=== PATIENT | female | born 1985 ===

== ENCOUNTER 2017-04-23 15:48 | Emergency (ER) | payer OTHER ==
[2017-04-23 15:58] VITALS: TEMP 97.5
--- NOTE | 2017-04-23 17:24 | ED PDOC ---
HPI: Psych/Substance Abuse Time Seen by Provider: 04/23/17 16:09 Chief Complaint (Nursing): Psychiatric Evaluation History Per: Patient Additional Complaint(s): Pt. states for the past several weeks she's felt overwhelmed, anxious, and very stressed out. States she is the sole provider of her children and that she is currently 5 months . States last week she was seen in [facility] ED for vaginal bleeding and dc'd with a negative work up. She then f/u with her OBGYN, Dr. Zaldivar, this week and had work up to r/o placenta previa but was normal. Reports bleeding has resolved along with pain. She was advised by her coworker to go to ED to be seen by crisis. Denies SI/HI, hallucinations. Offers no physical complaints at this time. Past Medical History Reviewed: Historical Data, Nursing Documentation, Vital Signs Vital Signs: Last Vital Signs Temp 97.5 F L 04/23/17 15:55 Pulse 72 04/23/17 15:55 Resp 18 04/23/17 15:55 BP 105/54 L 04/23/17 15:55 Pulse Ox 99 04/23/17 15:55 - Family History Family History: States: No Known Family Hx - Immunization History Hx Tetanus Toxoid Vaccination: (UTD) - Home Medications Home Medications: Ambulatory Orders Medication Instructions Recorded Cephalexin [Keflex] 500 mg PO QID #28 cap 01/24/15 Prednisone 50 mg PO DAILY #5 tab 01/24/15 DiphenhydrAMINE [Benadryl] 50 mg PO Q6H #20 cap 08/02/15 Famotidine [Pepcid] 20 mg PO BID #20 tab 08/02/15 Prednisone 50 mg PO DAILY #4 tab 08/02/15 - Allergies Allergies/Adverse Reactions: Allergies Allergy/AdvReac Type Severity Reaction Status Date / Time No Known Allergies Allergy Verified 04/23/17 17:24 Review of Systems ROS Statement: Except As Marked, All Systems Reviewed And Found Negative Psych: Positive for: Anxiety, Depression Physical Exam - Reviewed Nursing Documentation Reviewed: Yes Vital Signs Reviewed: Yes - Physical Exam Appears: Positive for: Well, Non-toxic, No Acute Distress Head Exam: Positive for: ATRAUMATIC, NORMAL INSPECTION, NORMOCEPHALIC Skin: Positive for: Normal Color, Warm, DRY Eye Exam: Positive for: EOMI, Normal appearance, PERRL ENT: Positive for: Normal ENT Inspection Neck: Positive for: Normal, Painless ROM Cardiovascular/Chest: Positive for: Regular Rate, Rhythm Respiratory: Positive for: CNT, Normal Breath Sounds Gastrointestinal/Abdominal: Positive for: Normal Exam, Bowel Sounds, Soft, Other (gravid). Negative for: Tenderness Back: Positive for: Normal Inspection. Negative for: L CVA Tenderness, R CVA Tenderness Extremity: Positive for: Normal ROM Neurologic/Psych: Positive for: Alert, Oriented, Mood/Affect (crying but easily consolable) - ECG O2 Sat by Pulse Oximetry: 99 - Progress ED Course And Treament: Crisis evaluation ordered. Pt. evaluated by crisis and cleared pt. for discharge with outpt. f/u arranged. Disposition - Clinical Impression Clinical Impression: Depression - Patient ED Disposition Is Patient to be Admitted: No - Disposition Disposition: Routine/Home Disposition Time: 18:34 Condition: STABLE Instructions: Depression (ED) Forms: [address] ([place])
[2017-04-23 18:51] VITALS: BP 110/72; PULSE 76; RESP 16; O2SAT 98
== END 2017-04-23 18:51 | disposition home or self-care (01) ==
LOC: H.ER 15:48
DX: F32.9 Major depressive disorder, single episode, unspecified (principal); Z00.8 Encounter for other general examination

== ENCOUNTER 2017-08-17 06:56 | Inpatient (IN) | payer OTHER ==
[2017-08-17 07:30] VITALS: BMI 30.7
[2017-08-17] MEDS: Lactated Ringer's 1,000 ML IV SCH ×2 (07:50→08:15)
--- NOTE | 2017-08-17 07:56 | OBHP ---
Datetime: 08/17/2017 07:47 IP Adm Impression: Term, intrauterine ; Active labor IP Admit Plan: Admit to unit; Initiate labor protocol Admit Comment, IP Provider: 31yo with IUP at 40wks presents here today c/o pelvic contractions. She reports good movements but denies VB or LOF. Pt had PNC with [facility], [place], operated by [facility] and had a h/o anxiety disorder Previous NSVDs X2, H/O Herpes on acyclovir prophylaxis. No herpetic lesions for the past 5 years. [place]- Q 2-3mins FHR- Category 1, Cx-5/80/-2,. Vtx presentation Assessment: IUP at 40wks in Active Labor. Plan: Admit to LND Monitor Closely the progress of labor. Pelvic Type - PN: Adequate Extremities - PN: Normal Abdomen - PN: Normal Back - PN: Normal Breast - PN: Normal Lungs - PN: Normal Heart - PN: Normal Thyroid - PN: Normal Neurologic - PN: Normal HEENT - PN: Normal General - PN: Normal Presentation-Admit: Vertex FHR - Baseline A Provider: 150 Membranes, Provider: Intact Contraction Comments Provider: Q 2-3 Comments, ACOG Physical Exam: Abd: Soft, NT, BS- present Gestation - Est Wks by US: 40.0 EGA AdmitDate IP: 40.0 Vital Signs Provider: Reviewed IP Chief Complaint: Uterine contractions; Maternal discomfort NICHD Variability Prov Fetus A: Moderate 6-25bpm NICHD Accel Fetus A IP Provider: [id number] FHR Category Provider Fetus A: Category I Dilatation, Provider: 5 Effacement, Provider: 80 Station, Provider: -2 Genitourinary Exam: Normal DTRs - PN: Normal
--- NOTE | 2017-08-17 07:59 | OBADHP ---
Datetime: 08/17/2017 07:47 Admit Comment, IP Provider: 31yo with IUP at 40wks presents here today c/o pelvic contractions. She reports good movements but denies VB or LOF. Pt had PNC with [facility] and had a h/o anxiety disorder Previous NSVDs X2, H/O Herpes on acyclovir prophylaxis. No herpetic lesions for the past 5 years. [place]- Q 2-3mins FHR- Category 1, Cx-5/80/-2,. Vtx presentation Assessment: IUP at 40wks in Active Labor. Plan: Admit to LND Monitor Closely the progress of labor. Pelvic Type - PN: Adequate Extremities - PN: Normal Abdomen - PN: Normal Back - PN: Normal Breast - PN: Normal Lungs - PN: Normal Heart - PN: Normal Thyroid - PN: Normal Neurologic - PN: Normal HEENT - PN: Normal General - PN: Normal Presentation-Admit: Vertex FHR - Baseline A Provider: 150 Membranes, Provider: Intact Contraction Comments Provider: Q 2-3 Comments, ACOG Physical Exam: Abd: Soft, NT, BS- present Gestation - Est Wks by US: 40.0 Vital Signs Provider: Reviewed IP Chief Complaint: Uterine contractions; Maternal discomfort NICHD Variability Prov Fetus A: Moderate 6-25bpm NICHD Accel Fetus A IP Provider: [id number] FHR Category Provider Fetus A: Category I Dilatation, Provider: 5 Effacement, Provider: 80 Station, Provider: -2 Genitourinary Exam: Normal DTRs - PN: Normal EGA AdmitDate IP: 40.0 IP Adm Impression: Term, intrauterine ; Active labor IP Admit Plan: Admit to unit; Initiate labor protocol
[2017-08-17] MEDS ORDERED: Lactated Ringer's 1,000 ML IV SCH (08:00)
[2017-08-17 08:20] LABS: BASO % 0.5 % (0.0-2.0); EOS % 0.4 % (0.0-4.0); LYMPH % 12.1 % (20.0-40.0); MEAN CELL VOLUME 86.1 fl (81.0-99.0); MEAN CORPUSCULAR HEMOGLOBIN 28.8 pg (27.0-31.0); MEAN CORPUSCULAR HGB CONC 33.5 g/dL (33.0-37.0); MEAN PLATELET VOLUME 9.4 fl (7.2-11.7); MONO # 0.6 K/uL (0.0-0.8); MONO % 7.5 % (0.0-10.0); NEUT # 6.8 K/uL (1.8-7.0); NEUT % 79.5 % (50.0-75.0); NRBC % 0.2 % (0.0-0.0); RBC 3.8 Mil/uL (3.80-5.20); RED CELL DISTRIBUTION WIDTH 14.1 % (11.5-14.5); WHITE BLOOD COUNT 8.5 K/uL (4.8-10.8)
[2017-08-17 08:24] VITALS: TEMP 98.5
[2017-08-17] MEDS ORDERED: Phenylephrine 10 mg/ml Inj ONE (08:31)
[2017-08-17] MEDS ORDERED: ePHEDrine 50 mg/ml Inj ONE (08:32)
[2017-08-17] MEDS ORDERED: Fentanyl/Bupivacaine HCl 250 ML EPI ONE (08:33)
[2017-08-17] MEDS ORDERED: Bupivacaine HCl 0.25% PF (10 ml) Inj ONE (08:33)
[2017-08-17] MEDS ORDERED: Lidocaine 1% Inj (20ml) ONE ×2 (09:08→16:55)
[2017-08-17] MEDS ORDERED: DiphenhydrAMINE 50 mg/ml Inj ONE (09:44)
--- NOTE | 2017-08-17 09:44 | OBDS ---
DELIVERY PERSONNEL Nurse Miniature Model Maker Certified: mary Delivery Doctor: DR Cruz Scrzeenat Nurse: mary Managed Care Nurse: Wilma Romero RNC Anesthesiologist: md [employer] Supervisor: mary Resident: Amauri MATERNAL INFORMATION Delivery Anesthesia: Epidural Medications in Delivery: pitocin Estimated Blood Loss (ml): 100c Placenta Cultured: No Maternal Complications: None RN Comments: uneventfull to baby girl; 9/9; no lacerations nor episiotomy Provider Comments: of live female over intact perineum in LINDA presentation, nuchal cord x 2 easily reduced, 6lbs 12oz, 9/9, followed by shoulders and rest of infant atraumatically, infant p laced on mother's chest, mouth and nose suctioned, cord clamped and cut, cord blood placenta deliver ed spontaneously, fundus firm, xpk=[id number], no lacerations noted, pt tolerated procedure fine LABOR SUMMARY EDC: 08/17/2017 00:00 No. Babies in Womb: 1 Attempted: No Labor Anesthesia: Epidural LABOR INFORMATION Onset of Labor: 08/17/2017 04:30 Complete Dilatation: 08/17/2017 09:15 Other Ripening Agents: na Oxytocin: N/A Group B Beta Strep: Negative Antibiotics # of Doses: na Antibiotics Time of Last Dose: na Steroids Given: None Reason Steroids Not Administered: Not Applicable Other Reason Not Administered: na MEMBRANES Membranes Rupture Method: Spontaneous Rupture of Membranes: 08/17/2017 09:05 Length of Rupture (hrs): 0.40 Amniotic Fluid Color: Clear Amniotic Fluid Amount: Scant Amniotic Fluid Odor: Normal STAGES OF LABOR Stage 1 hrs: 4 Stage 1 min: 45 Stage 2 hrs: 0 Stage 2 min: 14 Stage 3 hrs: 0 Stage 3 min: 1 Total Time in Labor hrs: 5 Total Time in Labor min: 0 VAGINAL DELIVERY Episiotomy: None Laceration Extension: N/A Laceration Type: None Laceration Repair: Not Applicable Initial Vag Sponge Count: 6 Final Vag Sponge Count: 6 Initial Vag Sharps Count: 1 Final Vag Sharps Count: 1 Sponge Count Correct: Yes Sharps Count Correct: Yes Count Comment: correct count BABY A INFORMATION Delivery Date/Time: 08/17/2017 09:29 Method of Delivery: Vaginal Born in Route : No : N/A Forceps: N/A Vacuum Extraction: N/A Shoulder Dystocia : No SHOULDER DYSTOCIA BABY A Infant Delivery Date/Time: 08/17/2017 09:29 PRESENTATION/POSITION BABY A Presentation: Cephalic Cephalic Presentation: Vertex Vertex Position: Left Occipital Anterior Breech Presentation: N/A PLACENTA INFORMATION BABY A Placenta Delivery Time : 08/17/2017 09:30 Placenta Method of Delivery: Spontaneous Placenta Status: Delivered SCORES BABY A Heart Rate 1 min: >100 bpm Resp Effort 1 min: Good Cry Reflex Irritability 1 min: Cough or Sneeze or Pulls Away Muscle Tone 1 min: Active Motion Color 1 min: Body [place], Extremities Blue SCORE 1 MIN: 9 Heart Rate 5 min: >100 bpm Resp Effort 5 min: Good Cry Reflex Irritability 5 min: Cough or Sneeze or Pulls Away Muscle Tone 5 min: Active Motion Color 5 min: Body [place], Extremities Blue SCORE 5 MIN: 9 INFANT INFORMATION BABY A Gestational Age at Delivery: 40.0 Gestational Status: Term Infant Outcome : Liveborn Condition : Stable Infant Sex: Female IDENTIFICATION/MEDS BABY A ID Band Number: [id number] ID Band Location: Left Leg; Left Arm WEIGHT/LENGTH BABY A Infant Birthweight (gms): 3065 Weight (lb): 6 Infant Weight (oz): 12 CORD INFORMATION BABY A No. Cord Vessels: 3 Nuchal Cord : Around Neck x2, Loose Nuchal Cord Other: 0 True Knot: 0 Cord pH Baby Arterial: na Cord pH Baby Venous: na Cord Blood Taken: Yes Banking/Donate Info: no Infant Suction: Mouth; Nose; Pharynx
[2017-08-17] MEDS ORDERED: Benzocaine/Menthol SPRAY TOP PRN (09:45)
[2017-08-17] MEDS ORDERED: Oxycodone/Acetaminophen 5/325 mg Tab PO PRN ×2 (09:45→11:30)
[2017-08-17] MEDS ORDERED: Oxytocin 30 UNITS in Sodium Chloride 0.9% 500 ML IV ONE (10:00)
[2017-08-17] MEDS ORDERED: DiphenhydrAMINE 50 mg/ml Inj IVP ONE (12:00)
[2017-08-17] MEDS: Benzocaine/Menthol SPRAY TOP PRN (16:39)
[2017-08-18 06:36] LABS: HEMOGLOBIN 9.5 g/dL (12.0-16.0); MEAN CELL VOLUME 87.3 fl (81.0-99.0); MEAN CORPUSCULAR HEMOGLOBIN 28.6 pg (27.0-31.0); MEAN CORPUSCULAR HGB CONC 32.8 g/dL (33.0-37.0); RBC 3.34 Mil/uL (3.80-5.20); RED CELL DISTRIBUTION WIDTH 14.7 % (11.5-14.5); WHITE BLOOD COUNT 8.7 K/uL (4.8-10.8)
[2017-08-18] MEDS: Multivitamin With Minerals Tab PO SCH (08:40)
[2017-08-18] MEDS ORDERED: Multivitamin With Minerals Tab PO SCH (09:00)
--- NOTE | 2017-08-18 10:38 | OBPPN ---
Datetime: 08/18/2017 06:12 PP Pain Prov: Within normal limits PP Nausea Prov: Denies PP Flatus Prov: Yes PP BM Prov: No PP Breasts Prov: Not Done PP Heart Prov: Normal PP Lungs Prov: Normal PP Abdomen/Uterus Prov: Normal PP Lochia Prov: Normal PP Vulva/Perineum Prov: Not Done PP CVA Tenderness Prov: Not Done PP Extremities Prov: Normal PP C/S Incision Prov: Not Applicable PP Progress Prov: Normal PP Impression Prov: Normal progression PP Plan Prov: Continue present management PP Progress Note Prov: S: 31 yo s/p NVD. Pt. is seen and examined at bedside this morning. N o overnight events. Pt reports occasional abdominal pain, but well controlled with pain meds. Pt is a mbulating without any difficulties. Breast feeding baby. Tolerating PO diet. Lochia is similar to lig ht menses in volume. Voiding freely, no BM yet, no passing gas per rectum. Denies fever/chills, diarr hea, nausea/vomiting, chest pain, dyspnea, and dizziness. VS: stable Gen: NAD Cardio: s1s2, no m/r/g Resp: clear breath sounds b/l Abdomen: BS+, NT, Uterus is firm and at the level of the umbilicus. EXT: No edema, calves nontender Neuro/Psych: AAOx3, no grossly focal deficit, preserved affect and mood. A/P: 31 yo s/p NVD. Pt remains afebrile, tolerating pain with medication, doing well on PP D 1. OOB with caution. SCDs for DVT prophylaxis, pt ambulating Ibuprofen 600mg for pain. Colace 100mg PO BID for constipation Encourage . PP CBC: pending MMR before d/c. Anticipated d/c: 08/19/17 [facility]ecerra PGY 1 [facility] - pt seen on ronds this mornign...agree with note...anticipate discharge tmr dm BOOKER PP Procedures: None Vital Signs Provider PP: Reviewed; Within Normal Limits
--- NOTE | 2017-08-18 14:14 | CP.PCM.CON ---
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 pt started experiencing panic attacks while driving to work with shortness of breath and sweating and hand tremors at least twice a day each attack lasting about 5minutes pt reported that she managed to take a time off from work and since then did not experience any panic attacks reported at current time mood stable no current anxiety symptoms, no manic or depressive symptoms no psychotic symptoms Past Patient History - Past Social History Smoking Status: Former Smoker - CARDIAC Hx Cardiac Disorders: No Hx Hypertension: No - PULMONARY Hx Tuberculosis: No - NEUROLOGICAL HX Cerebrovascular Accident: No Hx Seizures: No - HEMATOLOGICAL/ONCOLOGICAL Hx Cancer: No Hx Human Immunodeficiency Virus (HIV): No - GENITOURINARY/GYNECOLOGICAL Hx Sexually Transmitted Disorders: No - PSYCHIATRIC Hx Substance Use: No - SURGICAL HISTORY Hx Surgeries: No - ANESTHESIA Hx Anesthesia: No Meds Allergies/Adverse Reactions: Allergies Allergy/AdvReac Type Severity Reaction Status Date / Time No Known Allergies Allergy Verified 04/23/17 17:24 - Medications Medications: Current Medications Acetaminophen (Tylenol 325mg Tab) 650 mg PO Q6 PRN PRN Reason: Fever >100.4 F Last Admin: 08/17/17 16:40 Dose: 650 mg Benzocaine/Menthol (Dermoplast) 1 sprays TOP PRN PRN PRN Reason: Perineal Discomfort Last Admin: 08/17/17 16:39 Dose: 1 sprays Ibuprofen (Motrin Tab) 600 mg PO Q6 PRN PRN Reason: Pain, Mild (1-3) Last Admin: 08/18/17 08:44 Dose: 600 mg Multivitamins/Minerals (Therapeutic-M Tab) 1 tab PO DAILY SIGIFREDO Last Admin: 08/18/17 08:40 Dose: 1 tab Oxycodone/Acetaminophen (Percocet 5/325 Mg Tab) 1 tab PO Q4 PRN PRN Reason: Pain, moderate (4-7) Stop: 08/20/17 09:46 Physical Exam - Psychiatric Exam Additional comments: pt calm cooperative, good eye contact speech normal seen holding the baby and bonding well with her, thought form coherent denied any current suicidal or homicidal ideations denied perceptual disturbances, alert awake ox3 good insight and judgment Results - Vital Signs Recent Vital Signs: Last Vital Signs Temp 98.5 F 08/17/17 08:22 Pulse 92 H 08/17/17 08:22 Resp 17 08/17/17 08:22 BP 114/63 08/17/17 08:22 Pulse Ox 100 08/17/17 08:22 - Labs Result Diagrams: 08/18/17 06:15 Labs: Laboratory Results - last 24 hr 08/18/17 06:15 WBC 8.7 RBC 3.34 L Hgb 9.5 L Hct 29.1 L MCV 87.3 MCH 28.6 MCHC 32.8 L RDW 14.7 H Plt Count 164 Assessment & Plan - Assessment and Plan (Free Text) Assessment: panic disorder without agorophobia in remisson Plan: pt at current mental status not danger to self or others cleared to be discharged home after medical clearence
[2017-08-19] MEDS ORDERED: Measles, Mumps, and Rubella 0.5 ML VIAL SC ONE ×2 (09:00→11:00)
[2017-08-19] MEDS: Multivitamin With Minerals Tab PO SCH (09:19)
[2017-08-19] MEDS: Benzocaine/Menthol SPRAY TOP PRN (09:20)
--- NOTE | 2017-08-19 10:41 | OBPPN ---
Datetime: 08/19/2017 06:19 PP Pain Prov: Within normal limits PP Nausea Prov: Denies PP Flatus Prov: Yes PP BM Prov: Yes PP Heart Prov: Normal PP Lungs Prov: Normal PP Abdomen/Uterus Prov: Normal PP Lochia Prov: Normal PP Vulva/Perineum Prov: Not Done PP CVA Tenderness Prov: Not Done PP Extremities Prov: Normal PP C/S Incision Prov: Not Applicable PP Progress Prov: Normal PP Impression Prov: Normal progression PP Plan Prov: Discharge PP Progress Note Prov: S: 31 yo s/p NVD. Pt. is seen and examined at bedside this morning. N o overnight events. Pt reports occasional abdominal pain, but well controlled with pain meds. Pt is a mbulating without any difficulties. Breast feeding baby. Tolerating PO diet. Lochia is similar to lig ht menses in volume. Voiding freely, + BM. Denies fever/chills, diarrhea, nausea/vomiting, chest pain , dyspnea, and dizziness. VS: stable Gen: NAD Cardio: s1s2, no m/r/g Resp: clear breath sounds b/l Abdomen: BS+, NT, Uterus is firm and at the level of the umbilicus. EXT: No edema, calves nontender Neuro/Psych: AAOx3, no grossly focal deficit, preserved affect and mood. A/P: 31 yo s/p NVD. Pt remains afebrile, tolerating pain with medication, doing well on PP D 2. OOB with caution. SCDs for DVT prophylaxis, pt ambulating Ibuprofen 600mg for pain. Colace 100mg PO BID for constipation. Iron 325mg PO for anemia. Encourage . PP CBC: 9.5/29.1 MMR before d/c. Discharge today. YBecerra PGY 1 The patient was seen with the resident I agree with note IP PP Procedures: [place] Vital Signs Provider PP: Reviewed; Within Normal Limits
[2017-08-19 15:48] VITALS: BP 106/63; PULSE 79; RESP 18; O2SAT 99
== END 2017-08-19 11:47 | disposition home or self-care (01) | DRG 373 ==
LOC: H.EROB2 06:56 → H.L&D 07:48 → H.OB/GYN 11:30
PROVIDERS: ADMIT Obstetrics & Gynecology; ATTEND Obstetrics & Gynecology
PROC: 10E0XZZ Delivery of Products of Conception, External Approach (ICD-10-PCS; principal; 2017-08-17)
PROC: 4A1HXCZ Monitoring of Products of Conception, Cardiac Rate, External Approach (ICD-10-PCS; 2017-08-17)
DX: O48.0 Post-term pregnancy (principal); O99.344 Other mental disorders complicating childbirth; D64.9 Anemia, unspecified; O99.02 Anemia complicating childbirth; Z37.0 Single live birth; F41.0 Panic disorder [episodic paroxysmal anxiety]; O69.81X0 Labor and delivery complicated by cord around neck, without compression, not applicable or unspecified; Z3A.40 40 weeks gestation of pregnancy; K59.00 Constipation, unspecified; Z87.891 Personal history of nicotine dependence; Z86.19 Personal history of other infectious and parasitic diseases